=== PATIENT | female | born 1945 | race Caucasian/White ===

== ENCOUNTER → 2019-01-19 17:20 | Outpatient (CLI) | payer MEDICARE, SELFPAY ==
[2015-08-13 11:40] VITALS: BMI 31.1
== END ==
PROVIDERS: Referring Provider Nurse Practitioner Adult Health; Visit Provider Nurse Practitioner Adult Health
DX: N39.0 Urinary tract infection, site not specified (principal)
CPT/HCPCS: 87086; 87088; 87186